=== PATIENT | male | born 1960 | race Caucasian/White ===

== ENCOUNTER → 2020-12-14 07:57 | Outpatient (CLI) | payer OTHER, SELFPAY ==
[2020-12-14 08:42] LABS: Alanine Aminotransferase 36 IU/L (<50); Albumin 4.5 g/dL (3.5-5.0); Albumin Globulin Ratio 1.5 (1.0-2.8); Alkaline Phosphatase 86 U/L (38-126); Aspartate Aminotransferase 34 IU/L (17-59); BUN Creatinine Ratio 19.8 (6-22); Bilirubin Total 0.4 mg/dL (0.2-1.3); Blood Urea Nitrogen 16 mg/dL (9-20); Calcium 8.6 mg/dL (8.4-10.2); Carbon Dioxide 31 mmol/L (22-32); Chloride 102 mmol/L (98-107); Cholesterol 187 mg/dL (140-199); Estimated Glomerular Filt Rate > 60.0 mL/min (>60); Glucose 111 mg/dL (80-110); HDL Cholesterol 44 mg/dL (40-60); HEMOLYSIS < 15 (0-50); LDL Cholesterol Calculated 128 mg/dL (<100); Potassium 4.1 mmol/L (3.4-5.1); Sodium 137 mmol/L (137-145); Total Protein 7.5 g/dL (6.3-8.2); Triglycerides 77 mg/dL (35-150)
[2020-12-14 09:06] LABS: Prostate Specific Antigen Scrn 1.33 ng/mL (0.1-4.0)
== END ==
PROVIDERS: Family Provider Family Medicine; PCP Family Medicine; Referring Provider Family Medicine; Visit Provider Family Medicine
DX: E78.5 Hyperlipidemia, unspecified (principal); Z12.5 Encounter for screening for malignant neoplasm of prostate
CPT/HCPCS: 36415; 80053; 80061; G0103

== ENCOUNTER → 2021-03-10 08:49 | Outpatient (CLI) | payer OTHER, SELFPAY ==
[2021-03-10] MEDS: COVID-19 VACC #1, MRNA(MOD) 100 MCG/0.5 ML VIAL IM (08:58)
== END ==
PROVIDERS: PCP Family Medicine; Visit Provider Internal Medicine
DX: Z23 Encounter for immunization (principal)
CPT/HCPCS: 0011A; 91301

== ENCOUNTER → 2021-04-07 08:35 | Outpatient (CLI) | payer OTHER, SELFPAY ==
[2021-04-07] MEDS: COVID-19 VACC #2, MRNA(MOD) 100 MCG/0.5 ML VIAL IM (08:47)
== END ==
PROVIDERS: PCP Family Medicine; Visit Provider Internal Medicine
DX: Z23 Encounter for immunization (principal)
CPT/HCPCS: 0012A; 91301

== ENCOUNTER → 2021-08-03 09:49 | Outpatient (CLI) | payer OTHER, SELFPAY ==
[2021-08-03 12:03] LABS: Cholesterol 207 mg/dL (140-199); HDL Cholesterol 48 mg/dL (40-60); LDL Cholesterol Calculated 141 mg/dL (<100); Triglycerides 92 mg/dL (35-150)
== END ==
PROVIDERS: PCP Family Medicine; Referring Provider Family Medicine; Visit Provider Family Medicine
DX: E78.2 Mixed hyperlipidemia (principal)
CPT/HCPCS: 36415; 80061

== ENCOUNTER → 2021-08-05 11:31 | Outpatient (CLI) | payer OTHER, SELFPAY ==
[2021-08-08 08:39] LABS: Fecal Immunochemical Test Negative (Negative)
== END ==
PROVIDERS: PCP Family Medicine; Referring Provider Family Medicine; Visit Provider Family Medicine
DX: E78.5 Hyperlipidemia, unspecified (principal)
CPT/HCPCS: 82274

== ENCOUNTER → 2023-06-12 09:03 | Outpatient (CLI) | payer OTHER, SELFPAY ==
[2023-06-12 10:14] LABS: Add Manual Diff / Slide Review NO; Basophils Absolute Auto 0 /uL (0-100); Basophils Percent Auto 1.2 % (0-2); Eosinophils Absolute Auto 200 /uL (0-450); Eosinophils Percent Auto 6.4 % (2-4); Hematocrit 44.1 % (41-53); Hemoglobin 14.9 g/dL (13.5-17.5); Lymphocytes Absolute Auto 1100 /uL (1100-4500); Lymphocytes Percent Auto 31.8 % (25-40); Mean Corpuscular HGB Conc 33.7 % (30-36); Mean Corpuscular Hemoglobin 29.4 PG (26-34); Mean Corpuscular Volume 87.1 fL (80-100); Monocytes Absolute Auto 400 /uL (0-900); Monocytes Percent Auto 9.9 % (3-14); Neutrophils Absolute Auto 1800 /uL (1500-7000); Neutrophils Percent Auto 50.7 % (50-75); Platelet Count 179 X10^3/uL (150-400); Red Blood Cell Count 5.07 X10^6/uL (4.5-5.9); Red Cell Distribution Width 13.2 % (11.6-14.8); White Blood Cell Count 3.6 X10^3/uL (4.5-11.0)
[2023-06-12 10:30] LABS: Alanine Aminotransferase 28 IU/L (<50); Albumin 4.4 g/dL (3.5-5.0); Albumin Globulin Ratio 1.4 (1.0-2.8); Alkaline Phosphatase 73 U/L (38-126); Aspartate Aminotransferase 37 IU/L (17-59); BUN Creatinine Ratio 21.3 (6-22); Bilirubin Total 0.7 mg/dL (0.2-1.3); Blood Urea Nitrogen 17 mg/dL (9-20); Calcium 8.7 mg/dL (8.4-10.2); Carbon Dioxide 26 mmol/L (22-32); Chloride 104 mmol/L (98-107); Cholesterol 194 mg/dL (140-199); Estimated Glomerular Filt Rate > 60 mL/min (>60); Globulin 3.1 g/dL (1.7-4.1); Glucose 113 mg/dL (80-110); HDL Cholesterol 51 mg/dL (40-60); HEMOLYSIS 50 (0-50); LDL Cholesterol Calculated 131 mg/dL (<100); Potassium 4.5 mmol/L (3.4-5.1); Sodium 138 mmol/L (137-145); Total Protein 7.5 g/dL (6.3-8.2); Triglycerides 59 mg/dL (35-150)
[2023-06-12 10:59] LABS: TSH w/ Reflex to FT4 2.51 uIU/mL (0.47-4.68)
[2023-06-12 11:00] LABS: Prostate Specific Antigen 1.89 ng/mL (0.10-4.00)
[2023-06-14 07:43] LABS: x Labcorp Estim. Avg Glu (eAG) 126 mg/dL (.)
== END ==
PROVIDERS: PCP Family Medicine; Referring Provider Family Medicine; Visit Provider Family Medicine
DX: E78.5 Hyperlipidemia, unspecified (principal); G62.9 Polyneuropathy, unspecified; R73.9 Hyperglycemia, unspecified; Z12.5 Encounter for screening for malignant neoplasm of prostate
CPT/HCPCS: 36415; 80053; 80061; 83036; 84153; 84443; 85025

== ENCOUNTER → 2023-06-13 12:42 | Outpatient (CLI) | payer OTHER, SELFPAY ==
[2023-06-14 10:36] LABS: Fecal Immunochemical Test Negative (Negative)
== END ==
PROVIDERS: PCP Family Medicine; Referring Provider Family Medicine; Visit Provider Family Medicine
DX: Z12.11 Encounter for screening for malignant neoplasm of colon (principal)
CPT/HCPCS: 82274

== ENCOUNTER → 2023-12-04 07:54 | Outpatient (CLI) | payer OTHER, SELFPAY ==
[2023-12-04 09:08] LABS: Add Manual Diff / Slide Review YES; Hematocrit 45.8 % (41-53); Hemoglobin 15.5 g/dL (13.5-17.5); Mean Corpuscular HGB Conc 33.8 % (30-36); Mean Corpuscular Hemoglobin 29.2 PG (26-34); Mean Corpuscular Volume 86.3 fL (80-100); Platelet Count 246 X10^3/uL (150-400); Red Cell Distribution Width 13.1 % (11.6-14.8); White Blood Cell Count 6.6 X10^3/uL (4.5-11.0)
[2023-12-04 12:59] LABS: Neutrophils Absolute Manual 3102 /uL (3000-5900); RBC Morphology Normal Morphology; Total Cells Counted 100
== END ==
PROVIDERS: PCP Family Medicine; Referring Provider Family Medicine; Visit Provider Family Medicine
DX: D70.9 Neutropenia, unspecified (principal)
CPT/HCPCS: 36415; 85007; 85025

== ENCOUNTER → 2024-08-28 09:48 | Outpatient (CLI) | payer MEDICARE, SELFPAY ==
[2024-08-28 10:31] LABS: Add Manual Diff / Slide Review NO; Basophils Absolute Auto 100 /uL (0-100); Basophils Percent Auto 1.4 % (0-2); Eosinophils Absolute Auto 200 /uL (0-450); Eosinophils Percent Auto 5.3 % (2-4); Hematocrit 45.7 % (41-53); Hemoglobin 15.4 g/dL (13.5-17.5); Lymphocytes Absolute Auto 1800 /uL (1100-4500); Lymphocytes Percent Auto 42.2 % (25-40); Mean Corpuscular HGB Conc 33.8 % (30-36); Mean Corpuscular Hemoglobin 29.4 PG (26-34); Monocytes Absolute Auto 400 /uL (0-900); Monocytes Percent Auto 8.5 % (3-14); Neutrophils Absolute Auto 1900 /uL (1500-7000); Neutrophils Percent Auto 42.6 % (50-75); Platelet Count 201 X10^3/uL (150-400); Red Blood Cell Count 5.26 X10^6/uL (4.5-5.9); Red Cell Distribution Width 12.9 % (11.6-14.8); White Blood Cell Count 4.4 X10^3/uL (4.5-11.0)
[2024-08-28 10:44] LABS: Hemoglobin A1C% w Est Avg Glu 5.9 % (4.0-6.0)
[2024-08-28 10:57] LABS: Alanine Aminotransferase 38 IU/L (<50); Albumin 4.5 g/dL (3.5-5.0); Albumin Globulin Ratio 1.6 (1.0-2.8); Alkaline Phosphatase 82 U/L (38-126); Aspartate Aminotransferase 34 IU/L (17-59); Bilirubin Total 0.8 mg/dL (0.2-1.3); Blood Urea Nitrogen 15 mg/dL (9-20); Calcium 8.9 mg/dL (8.4-10.2); Carbon Dioxide 27 mmol/L (22-32); Chloride 104 mmol/L (98-107); Cholesterol 207 mg/dL (140-199); Estimated Glomerular Filt Rate > 60 mL/min (>60); Globulin 2.9 g/dL (1.7-4.1); Glucose 112 mg/dL (80-110); HDL Cholesterol 45 mg/dL (40-60); HEMOLYSIS < 15 (0-50); LDL Cholesterol Calculated 149 mg/dL (<100); Potassium 4.1 mmol/L (3.4-5.1); Sodium 138 mmol/L (137-145); Total Protein 7.4 g/dL (6.3-8.2); Triglycerides 65 mg/dL (35-150)
[2024-08-28 11:26] LABS: TSH w/ Reflex to FT4 3.34 uIU/mL (0.47-4.68)
[2024-08-28 11:29] LABS: Prostate Specific Antigen Scrn 1.88 ng/mL (0.1-4.0)
[2024-08-29 05:14] LABS: Apolipoprotein B 108 mg/dL (<90)
== END ==
PROVIDERS: PCP Family Medicine; Referring Provider Family Medicine; Visit Provider Family Medicine
DX: E78.2 Mixed hyperlipidemia (principal); R73.9 Hyperglycemia, unspecified; Z12.5 Encounter for screening for malignant neoplasm of prostate; R73.09 Other abnormal glucose
CPT/HCPCS: 36415; 80053; 80061; 82172; 83036; 84443; 85025; G0103

== ENCOUNTER → 2024-09-01 13:42 | Outpatient (CLI) | payer MEDICARE, SELFPAY | LOC: CAR 13:43 | PROVIDERS: PCP Family Medicine; Referring Provider Physician Assistant; Visit Provider Physician Assistant | DX: R00.2 Palpitations (principal) | CPT/HCPCS: 93242 ==

== ENCOUNTER → 2024-09-26 10:21 | Outpatient (CLI) | payer MEDICARE, SELFPAY ==
[2024-09-29 11:10] LABS: Fecal Immunochemical Test Negative (Negative)
== END ==
PROVIDERS: PCP Family Medicine; Referring Provider Family Medicine; Visit Provider Family Medicine
DX: Z12.11 Encounter for screening for malignant neoplasm of colon (principal)
CPT/HCPCS: 82274

== ENCOUNTER → 2025-02-02 07:47 | Outpatient (CLI) | payer MEDICARE, SELFPAY ==
--- NOTE | 2025-02-02 07:48 | DI.NM.S_ITS ---
PROCEDURE: NM EXERCISE TREADMILL NON NUC COMPARISON: None. INDICATIONS: Chest pain FINDINGS: Rest ECG sinus rhythm, frequent PVCs. Sebastián protocol 10:00, maximum heart rate 165 bpm (107% peak predicted), peak blood pressure 162/82, 10.7 METS, PIPE -27%. Exercise ECG sinus tachycardia, 1.3 mm horizontal to upsloping ST segment depressions leads II, V5 and V6, significant decrease in PVC burden. The patient did not report exercise-induced chest discomfort. IMPRESSION: Abnormal study. Exercise-induced ST segment changes upsloping in leads II and V5 however horizontal and V6, the latter of which could be consistent with inducible ischemia. Frequent PVCs noted at rest that decreased with exercise. Normal hemodynamic response. Very good exercise capacity. Dictated by: Abbie Silvestre D.O. on 02/02/2025 at 17:30 Approved by: Abbie Silvestre D.O. on 02/02/2025 at 17:36
--- NOTE | 2025-02-02 07:49 | DI.ECHO.S_ITS ---
[facility] : : [address] : : [place] : : [id number] : : Phone: [phone] Echocardiogram Report + + :Name: ARON FITZPATRICK Study Date: 02/02/2025 Height: 70 in : :[facility] ReadingLocation: Weight: 195 lb : : Gender: Male BSA: 2.1 m2 : :: 1960 Age: 65 yrs BP: 125/80 mmHg: :Reason For Study: CHEST PAIN : :Ordering Physician: ARETHA HEIN Performed By: Byron Frausto : :Referring: ARETHA HEIN : + + Interpretation Summary 1. The left ventricular contractility is borderline. Estimate ejection fraction is approximately 50 to 55% with no segmental wall motion abnormalities. No LVH. Impaired relaxation. 2. The right ventricular contractility is normal. 3. All cardiac chambers are of normal size. 4. No significant valvular abnormalities. 5. No obvious intracardiac shunts. 6. No obvious intra masses nor thrombi. 7. No hemodynamically significant pericardial effusion. 8. Low right-sided filling pressures. Conclusion: Low normal left ventricular systolic function with no significant valvular abnormalities. Procedure: A two-dimensional transthoracic echocardiogram with color flow and Doppler was performed. The study quality was technically good. There is no prior echocardiogram noted for this patient. The patient was in normal sinus rhythm during the exam. Left Ventricle: The left ventricle is normal in size. There is normal left ventricular wall thickness. There is no ventricular septal defect visualized. The ejection fraction is estimated to be 55-60%. There are no focal wall motion abnormalities. Diastolic parameters suggest a relaxation abnormality of the left ventricle, consistent with probable normal filling pressures. Right Ventricle: The right ventricle is normal in size and function. Atria: The left atrial size is normal. Right atrial size is normal. There is no Doppler evidence for an interatrial shunt. Mitral Valve: The mitral valve leaflets appear normal. There is no evidence of stenosis, fluttering, or prolapse. There is no mitral regurgitation noted. Aortic Valve: The aortic valve is trileaflet. The aortic valve opens well. No aortic regurgitation is present. Tricuspid Valve: The tricuspid valve leaflets are thin and pliable. No tricuspid regurgitation. Pulmonic Valve: The pulmonic valve leaflets are thin and pliable; valve motion is normal. There is trace pulmonic regurgitation. Great Vessels: The aortic root is normal size. The dimensions of the ascending aorta are normal. The pulmonary artery is normal size. The IVC is of normal diameter and collapses greater than 50% with a sniff. This suggests a low right atrial pressure of 3 mm Hg. Pericardium/ Pleura There is no pericardial effusion. There is no pleural effusion. MMode/2D Measurements & Calculations LVIDd: 4.9 cm LVOT diam: 2.2 cm LVIDs: 3.4 cm Ao root diam: 3.3 cm FS: 30.2 % asc Aorta Diam: 3.4 cm EPSS: 0.58 cm Ao Arch Diam (Prox Trans): 2.2 cm IVSd: 0.90 cm LVPWd: 0.76 cm LV knutson. diameter/BSA (cm/m^2): 2.4 LV sys. diameter/BSA (cm/m^2): 1.6 LA A2 area: 15.9 cm2 RA long axis: 4.8 cm LA A4 area: 14.8 cm2 RA area: 13.6 cm2 LA length (vol): 5.1 cm RA vol: 32.8 ml LA vol: 39.5 ml RA : 15.9 ml/m2 LA vol index: 19.1 ml/m2 IVC diam: 1.3 cm RVD1 (basal): 3.8 cm RVD2 (mid): 3.1 cm TAPSE: 2.7 cm Doppler Measurements & Calculations Ao V2 max: 111.6 cm/sec LVOT Max Yohan: 102.2 cm/sec Ao V2 mean: 81.6 cm/sec LV V1 max P.2 mmHg Ao max P.0 mmHg LV V1 VTI: 21.9 cm Ao mean P.9 mmHg FERNANDO(I,D): 3.2 cm2 Ao V2 VTI: 25.2 cm FERNANDO(V,D): 3.4 cm2 sev ratio: 0.87 FERNANDO indexed to BSA (cm^2/m^2): 1.6 MV E max yohan: 54.7 cm/sec TR max yohan: 0.28 cm/sec MV A max yohan: 69.7 cm/sec TR max P.00 mmHg MV E/A: 0.78 PA V2 max: 75.9 cm/sec Med Peak E' Yohan: 5.9 cm/sec PA V2 mean: 47.9 cm/sec E/E' med: 9.2 PA mean P.1 mmHg Lat Peak E' Yohan: 9.2 cm/sec PA pr(Accel): 17.3 mmHg E/E' lat: 6.0 E/e' average: 7.6 MV dec time: 0.23 sec SV(LVOT): 81.2 ml Reading Physician:MARILU
== END ==
PROVIDERS: PCP Family Medicine; Referring Provider Internal Medicine; Visit Provider Internal Medicine
DX: R94.31 Abnormal electrocardiogram [ECG] [EKG] (principal); R00.0 Tachycardia, unspecified; R07.9 Chest pain, unspecified
CPT/HCPCS: 93017; 93306

== ENCOUNTER → 2025-04-23 07:15 | Outpatient (CLI) | payer MEDICARE, SELFPAY ==
--- NOTE | 2025-04-28 08:01 | DI.NM.S_ITS ---
DATE OF SERVICE: 04/23/2025 PROCEDURE: Pharmacological perfusion study. INDICATIONS: Chest pain, PVCs, abnormal stress test. RADIOPHARMACEUTICAL: 25.3 mCi technetium-99m Myoview IV was injected at stress and 25.8 mCi technetium-99m Myoview IV was injected at rest. Two days protocol was performed. CARDIAC STRESS: The patient underwent IV Lexiscan perfusion study under the supervision of an attending staff. The patient remained hemodynamically stable. Blood pressure 130/88. Baseline rhythm sinus with some isolated PVCs. During Lexiscan, no obvious ischemic EKG changes. Intermittent PVCs seen. No ventricular tachycardia. No chest pain. RAW DATA: There is increased subdiaphragmatic activity. GATED STUDY: Stress LV ejection fraction 67% without any obvious wall motion abnormalities. Resting end-diastolic volume 118 mL. TID ratio 1.13, which is within normal limit. Lung/heart ratio 0.27, which is within normal limit. MYOCARDIAL PERFUSION SCAN: Stress supine, resting supine, and stress prone images were compared to each other. Stress supine images revealed small size, mildly decreased perfusion of distal inferior wall. It got resolved during stress prone images. Stress prone images revealed normal myocardial perfusion. CONCLUSION: I will call this study a normal myocardial perfusion study with evidence of diaphragmatic tissue attenuation artifact which got resolved during stress prone images. Summed stress score zero, summed rest score zero. Preserved LV function without any significant wall motion abnormalities. Baseline rhythm sinus with intermittent PVCs. No ventricular tachycardia or ischemic EKG changes or chest pain. Overall, low-risk myocardial perfusion scan. Blayne Alcantara - DIRECTOR OF ACADEMIC/fn/PA doc#: [id number]/job#: [id number] dd: 04/27/2025 16:18:00 dt: 04/27/2025 16:26:00 DICTATING MD/COPIES TO: Negra Melchor MD COPIES MNE: SHIRIN;
== END ==
LOC: NUCM 07:15
PROVIDERS: PCP Family Medicine; Referring Provider Internal Medicine; Visit Provider Internal Medicine
DX: I49.3 Ventricular premature depolarization (principal); R07.9 Chest pain, unspecified; R94.39 Abnormal result of other cardiovascular function study
CPT/HCPCS: 78452; 93017; A9502; J2785